=== PATIENT | female | born 1970 | race Caucasian/White ===

== ENCOUNTER 2018-01-17 17:53 | Emergency (ER) | payer BC ==
[2018-01-17 18:19] VITALS: BP 124/76
--- NOTE | 2018-01-17 18:30 | UC ---
Skin Complaint HPI - HPI Summary HPI Summary: burned L hand with hot cooking grease this am, still very painful, ibuprofen and ice packs helping minimally. - History of Current Complaint Chief Complaint: UCBurn Time Seen by Provider: 01/17/18 18:08 Stated Complaint: BURNED HAND Hx Obtained From: Patient Onset/Duration: Sudden Onset Timing: Constant Onset Severity: Severe Current Severity: Severe Pain Intensity: 10 Location: Hand (Left) Character: Redness, Painful Aggravating Factor(s): Touch Alleviating Factor(s): Cold Compresses Associated Signs & Symptoms: Positive: Negative - Allergy/Home Medications Allergies/Adverse Reactions: Allergies Allergy/AdvReac Type Severity Reaction Status Date / Time No Known Allergies Allergy Verified 01/17/18 18:19 Home Medications: Home Medications NK [No Home Medications Reported] 01/17/18 [History Confirmed 01/17/18] Review of Systems Constitutional: Negative Skin: Other - burn Respiratory: Negative Cardiovascular: Negative Neurological: Negative Psychological: Negative All Other Systems Reviewed And Are Negative: Yes PMH/Surg Hx/FS Hx/Imm Hx Previously Healthy: Yes - Surgical History Surgical History: None - Family History Known Family History: Positive: None - Social History Occupation: Employed Full-time Lives: With Family Alcohol Use: Occasionally Substance Use Type: None Smoking Status (MU): Never Smoked Tobacco Physical Exam Triage Information Reviewed: Yes Appearance: Well-Appearing, Well-Nourished, Other: - holding ice on burn Vital Signs: Initial Vital Signs Temp 98.9 F 01/17/18 18:13 Pulse 73 01/17/18 18:13 Resp 20 01/17/18 18:13 BP 124/76 01/17/18 18:13 Pulse Ox 99 01/17/18 18:13 Vital Signs Reviewed: Yes Respiratory Exam: Normal Respiratory: Positive: Lungs clear Cardiovascular Exam: Normal Musculoskeletal Exam: Normal Neurological Exam: Normal Skin: Positive: Other - superficial partial thickness burn R thumb nad radial side wrist, skin red, no blisters at this time Course/Dx - Differential Diagnoses - Skin Complaint Differential Diagnoses: Other - burn - Diagnoses Provider Diagnoses: thermal burn L hand Discharge - Sign-Out/Discharge Documenting (check all that apply): Discharge/Admit/Transfer - Discharge Plan Condition: Stable Disposition: HOME Patient Education Materials: Superficial Burn (ED) Referrals: No Primary Care Phys,NOPCP [Primary Care Provider] - Additional Instructions: keep dressing on for 48hours, apply ice packs and use ibuprofen as directed for pain use over the counter burn cream/gel with lidocaine as directed - Billing Disposition and Condition Condition: STABLE Disposition: HOME
[2018-01-17] MEDS ORDERED: Lidocaine 4% TOPICAL* 50 ML TOP.SOLN TOPICAL ONE (18:31)
[2018-01-17] MEDS ORDERED: Acetaminop/Codeine 30 MG TAB* 1 TAB (300 MG/30 MG) PO ONE (18:36)
== END 2018-01-17 19:01 | disposition home or self-care (01) ==
LOC: UCEAST 17:53
DX: T23.002A Burn of unspecified degree of left hand, unspecified site, initial encounter (principal); X12.XXXA Contact with other hot fluids, initial encounter; Y93.G3 Activity, cooking and baking; Y92.9 Unspecified place or not applicable
CPT/HCPCS: 99202; A9270-GY; G0463